=== PATIENT | female | born 1980 | race African-American/Black ===

== ENCOUNTER 2023-01-22 13:16 | Emergency (ER) | payer MEDICAID ==
[~2023-01-22] VITALS: Ht 160 cm; Wt 61.4 kg
[2023-01-22 13:44] VITALS: TEMP 98.3; O2SAT 100
[2023-01-22 17:15] VITALS: BP 116/70; PULSE 102; RESP 18
[2023-01-22] MEDS ORDERED: KETOROLAC 30MG/ML VIAL IM ONE (17:15)
[2023-01-22] MEDS ORDERED: CEPH500T MT (17:26)
[2023-01-22] MEDS ORDERED: ACYC200C31 MT (17:26)
[2023-01-22] MEDS ORDERED: LIDOCAINE HCL/PF 1% 10 MG/ML 5ML VIAL INFIL ONE (17:30)
[2023-01-22 17:46] LABS: CLARITY URINE CLOUDY (CLEAR); COLOR URINE YELLOW (YELLOW); GLUCOSE URINE NEGATIVE (NEGATIVE); KETONES URINE NEGATIVE (NEGATIVE); LEUKOCYTE ESTERASE URINE 2+ (NEGATIVE); NITRITE URINE NEGATIVE (NEGATIVE); OCCULT BLOOD URINE 1+ (NEGATIVE); PH URINE 5.5 (4.5-8.0); PROTEIN URINE TRACE (NEGATIVE); SPECIFIC GRAVITY URINE 1.031 (1.005-1.030); UROBILINOGEN URINE 0.2 E.U./dL (0.2-1.0)
[2023-01-22] MEDS ORDERED: CEFTRIAXONE SODIUM 1 G/VIAL IM ONE (18:00)
[2023-01-22] MEDS ORDERED: DOXY100C5 MT (18:01)
[2023-01-22 18:14] LABS: BACTERIA URINE 2+; SQUAMOUS EPITHELIAL CELL URINE 2+ /lpf (RARE/1+)
[2023-01-25 08:13] LABS: CHLAMYDIA TRACHOMATIS NAA Negative (Negative); NEISSERIA GONORRHOEAE NAA Negative (Negative)
== END 2023-01-22 18:24 | disposition home or self-care (01) ==
LOC: ER 13:16
DX: N75.1 Abscess of Bartholin's gland (principal); B00.9 Herpesviral infection, unspecified; Z11.3 Encounter for screening for infections with a predominantly sexual mode of transmission
CPT/HCPCS: 87491; 87591; 81003; 96372; 99284; J0696; J1885; J3490; Z7610 ×3

== ENCOUNTER 2025-05-08 11:20 | Emergency (ER) | payer MEDICAID ==
[~2025-05-08] VITALS: Ht 162.6 cm; Wt 61.0 kg
[~2025-05-08 11:20] MED LIST: ACYC-58 MT; CEPH500T MT; DOXY100C5 MT
[2025-05-08 11:29] VITALS: BP 101/78; PULSE 81; RESP 18; TEMP 36.7; O2SAT 100
[2025-05-08] MEDS: IBUPROFEN 600MG TABLET PO ONE (12:17)
[2025-05-08] MEDS: ACETAMINOPHEN 325MG TABLET PO ONE (12:19)
[2025-05-08 12:35] VITALS: O2SAT 100
== END 2025-05-08 12:44 | disposition home or self-care (01) ==
LOC: ER 11:20
DX: S01.511A Laceration without foreign body of lip, initial encounter (principal); Z79.899 Other long term (current) drug therapy; Y04.0XXA Assault by unarmed brawl or fight, initial encounter; Y93.89 Activity, other specified; Y92.89 Other specified places as the place of occurrence of the external cause; Y99.8 Other external cause status
CPT/HCPCS: 99283